=== PATIENT | female | born 1965 | race Two or more races ===

== ENCOUNTER 2022-09-04 13:23 | Emergency (ER) | payer OTHER ==
[2022-09-04] MEDS ORDERED: ONDANSETRON 4 MG/2 ML VIAL IVPUSH ONE (13:40)
[2022-09-04] MEDS ORDERED: ONDANSETRON 4 MG/2 ML VIAL ONE (13:45)
[2022-09-04 14:02] LABS: EOS % 0.8 % (0-4.5); HEMATOCRIT 44.4 % (32.4-45.2); HEMOGLOBIN 14.5 GM/dL (10.7-15.3); LYMPH % 35.4 % (8-40); MCH 27.2 pg (25.7-33.7); MCHC 32.8 g/dl (32.0-36.0); MEAN PLT VOLUME 10.6 fl (7.5-11.1); MONO % 5.5 % (3.8-10.2); NEUT % 57.3 % (42.8-82.8); PLATELET COUNT 183 10^3/uL (134-434); RBC 5.34 M/mm3 (3.60-5.2); RDW 14.8 % (11.6-15.6)
[2022-09-04 14:04] LABS: INR 0.95 (0.83-1.09); PROTHROMBIN TIME (PATIENT) 10.9 SEC (9.7-13.0)
[2022-09-04 14:15] LABS: CALCIUM 10.2 mg/dL (8.5-10.1)
[2022-09-04 14:16] LABS: ALBUMIN 4.4 g/dl (3.4-5.0); BLOOD UREA NITROGEN 18.6 mg/dL (7-18)
[2022-09-04 14:19] LABS: CREATININE 1.1 mg/dL (0.55-1.3)
[2022-09-04 14:20] LABS: TOT PROT 7.6 g/dl (6.4-8.2)
[2022-09-04 14:28] VITALS: RESP 20; TEMP 97.6; BMI 19.2
[2022-09-04] MEDS ORDERED: ACETAMINOPHEN 1000 MG/100 ML BAG IVPB ONE (14:37)
[2022-09-04] MEDS ORDERED: KETOROLAC TROMETHAMINE 15 MG/ML VIAL IVPUSH ONE (14:45)
[2022-09-04] MEDS ORDERED: ACETAMINOPHEN INJECTION 100 ML IVPB ONE (14:47)
[2022-09-04] MEDS ORDERED: KETOROLAC TROMETHAMINE 15 MG/ML VIAL ONE (14:54)
[2022-09-04 15:44] VITALS: BP 148/70; PULSE 72
== END 2022-09-04 15:44 | disposition home or self-care (01) ==
LOC: JER 13:23
PROC: 3E033GC Introduction of Other Therapeutic Substance into Peripheral Vein, Percutaneous Approach (ICD-10-PCS; principal; 2022-09-04)
DX: S06.0X9A Concussion with loss of consciousness of unspecified duration, initial encounter (principal); S49.92XA Unspecified injury of left shoulder and upper arm, initial encounter; V49.40XA Driver injured in collision with unspecified motor vehicles in traffic accident, initial encounter
CPT/HCPCS: 36415; 70450-TC; 71045-TC-FY; 72125-TC; 73030-TC-LT-FY; 76604; 76705-TC; 80053; 85025; 85610; 85730; 86850; 86900; 86901; 93308; 99285-25